=== PATIENT | male | born 1975 | race Caucasian/White ===

== ENCOUNTER 2019-05-01 01:20 | Outpatient (CLI) | payer BC, SELFPAY ==
[2019-05-01] MEDS: Normal Saline Flush 10 ML SYR IVP (08:53)
[2019-05-01] MEDS: Gadoterate meglumine 20 ML VIAL 15 ML IVP (08:54)
--- NOTE | 2019-05-01 09:15 | DI.MRI_ITS ---
EXAM: MR IAC BRAIN WO/W CLINICAL HISTORY: QUESTIONING TRIGEMINAL NEURALGIA, R/O LESION, RT SIDED FACIAL PAIN, HEADACHE, R51 TECHNIQUE: Multiplanar multisequence MRI was performed. COMPARISON: No exams were available for comparison FINDINGS: MR examination of the brain was performed according to the usual protocol with additional high-resolu tion pre and post contrast imaging of the posterior fossa/IAC region. Incidental note is made of mucoperiosteal thickening of right maxillary and bilateral ethmoid sinuses consistent with chronic sinusitis. The orbital structures appear intact. The temporal bone structures appear intact. Internal auditory canals and visualized 7th and 8th nerv es appear normal. No anatomic abnormality or enhancement associated with visualized 5th cranial nerv es. No mass lesion or enhancing lesion identified in the posterior fossa/IAC region. Whole brain im aging shows no enhancing lesion. There is question of minimal subcortical signal abnormality seen in right parietal lobe on FLAIR imag ing only, I think this is probably artifactual as it is not visible on standard T2 weighted imaging. No additional signal abnormality identified in the brain. IMPRESSION: Negative brain MRI with attention to posterior fossa as described above. DATA REPOSITORY:
== END 2019-05-01 01:40 ==
PROVIDERS: PCP Family Medicine; Visit Provider Nurse Practitioner Family
DX: R51 Headache (principal); J32.2 Chronic ethmoidal sinusitis; J32.0 Chronic maxillary sinusitis
CPT/HCPCS: 70553

== ENCOUNTER 2019-06-30 12:06 | Outpatient (CLI) | payer BC, SELFPAY ==
[2019-06-30 12:23] LABS: Bilirubin Negative (Negative); Blood Negative (Negative); Clarity Clear (Clear); Glucose Negative (Negative); Ketones Negative (Negative); Leukocyte Esterase Negative (Negative); Nitrite Negative (Negative); Specific Gravity >= 1.030 (1.005-1.025); Urobilinogen 0.2 EU/dL (Up TO 0.2); pH 5.5 (5-8)
[2019-06-30 12:28] LABS: Abs Immature Grans 0.01 k/cumm (0.0-0.09); Absolute Basophil Count 0.02 k/cumm (0.0-0.2); Absolute Eosinophil Count 0.16 k/cumm (0.0-0.7); Absolute Lymphocyte Count 1.68 k/cumm (1.2-3.4); Absolute Monocyte Count 0.59 k/cumm (0.11-0.7); Absolute Neutrophil Count 4.77 k/cumm (1.2-6.7); Basophils % 0.3; Eosinophils % 2.2; HCT 43.5 % (40.0-50.0); HGB 15.6 g/dL (13.5-17.5); Immature Grans % 0.1 %; Lymphocytes % 23.2; Mean Corp. HGB Concentration 35.9 g/dL (32.0-36.0); Mean Corpuscular Hemoglobin 31.6 pg (27.0-33.0); Mean Corpuscular Volume 88.1 fL (80-95); Mean Platelet Volume 10.2 fL (8.0-11.0); Monocytes % 8.2; Platelet Count 230 x1000/uL (130-400); RBC 4.94 m/cumm (4.50-6.00); RBC Distribution Width 12.1 % (11.8-14.1); White Blood Cell Count 7.23 k/cumm (4.4-10.8)
[2019-06-30 14:27] LABS: ALT 37 U/L (16-63); AST 18 U/L (15-37); Albumin 4.1 g/dL (3.4-5.0); Alkaline Phosphatase 64 U/L (46-116); Anion Gap 4.3 mmol/L (3-11); BUN 25 mg/dL (7-18); Bilirubin, Total 0.8 mg/dL (0.2-1.0); CO2 31.7 mmol/L (21.0-32.0); CREATININE 0.97 mg/dL (0.70-1.30); Calcium 9.4 mg/dL (8.5-10.1); Chloride 103 mmol/L (98-107); Glucose 80 mg/dL (74-106); Potassium 4.8 mmol/L (3.5-5.1); Sodium 139 mmol/L (136-145)
== END 2019-06-30 12:26 ==
PROVIDERS: PCP Family Medicine; Visit Provider Nurse Practitioner Family
DX: R39.198 Other difficulties with micturition (principal); M54.5 Low back pain
CPT/HCPCS: 36415; 80053; 81003; 84154; 85025

== ENCOUNTER 2019-07-17 10:11 | Outpatient (CLI) | payer BC, SELFPAY ==
--- NOTE | 2019-07-17 14:00 | DI.RAD_ITS ---
EXAM: XR LUMBAR SPINE COMPLETE CLINICAL HISTORY: Low back pain, M54.5 TECHNIQUE: COMPARISON: No exams were available for comparison FINDINGS: Five views were obtained. The intervertebral disc spaces are well maintained. Minimal endplate hype rtrophic spurring is noted in the mid lumbar region. No other significant bony abnormality seen. No evidence of spondylolysis or spondylolisthesis. There is a minimal right convex lumbar scoliosis. There is minimal vertebral wedging of L1 vertebral body which is probably developmental. IMPRESSION: Mild DJD lumbar spine
== END 2019-07-17 10:31 ==
PROVIDERS: PCP Family Medicine; Visit Provider Family Medicine
DX: M54.5 Low back pain (principal); M47.816 Spondylosis without myelopathy or radiculopathy, lumbar region
CPT/HCPCS: 72110

== ENCOUNTER 2019-12-11 00:39 | Outpatient (CLI) | payer BC, SELFPAY ==
--- NOTE | 2019-12-11 | DI.MRI_ITS ---
EXAM: MR ANGIO BRAIN WO CLINICAL HISTORY: TRIGEMINAL NEURALGIA LT SIDE OF FACE,G50.0. TECHNIQUE: Multiplanar multisequence MRI was performed. COMPARISON: No exams were available for comparison FINDINGS: MR angiography of the region of the [id number] was performed according to the usual protocol [facility] 3D akau-io-xesvvo imaging. The visualized internal carotid arteries appear intact, no aneurysm, d issection, or stenosis. The visualized vertebral arteries and basilar artery appear intact, no aneurysm, dissection, or steno sis. The anterior, middle, and posterior cerebral arteries and major branches appear intact. No aneurysm, dissection, or stenosis. IMPRESSION: Negative MR angiography, [id number] region. DATA REPOSITORY:
== END 2019-12-11 00:59 ==
PROVIDERS: PCP Nurse Practitioner; Visit Provider Nurse Practitioner
DX: G50.0 Trigeminal neuralgia (principal)
CPT/HCPCS: 70544

== ENCOUNTER 2021-10-31 09:40 | Emergency (ER) | payer SELFPAY ==
[2021-10-31] VITALS (50 sets, daily range): BP systolic 121–160; BP diastolic 71–124; PULSE 76–203; RESP 11–31; TEMP 36.7; O2SAT 90–100
--- NOTE | 2021-10-31 09:30 | RT.EKG_ITS ---
APPROVED REPORT Exam: Resting ECG Reason for Exam: chest pain Patient Location: E HR:118 bpm ECG Measurements Heart Rate 118 AXIS UT 162 P 147 QRSd 94 QRS 146 QT 300 T 162 QTc 419 Conclusion Sinus or ectopic atrial tachycardia...P axis (-45,135), rate> 99 Ventricular premature complex...V complex w/ short R-R interval Probable left atrial enlargement...P >50mS, <-0.10mV V1 Right axis deviation...QRS axis (100,269) poor baseline due to lead placement and patient movement; narrow complex regular rhythm, right axis
--- NOTE | 2021-10-31 09:30 | DI.RAD_ITS ---
Exam(s) XR PORTABLE CHEST AP EXAM: XR PORTABLE CHEST AP CLINICAL HISTORY: left chest pain, consider pneumothorax?. TECHNIQUE: 2D digital imaging was performed. COMPARISON: No exams were available for comparison FINDINGS: Single AP portable view. Heart size is upper normal. The mediastinum is not widened. Lungs are clear. No infiltrates nor obvious pleural effusions. IMPRESSION: No acute pulmonary findings on this single AP portable view of the chest. DATA REPOSITORY: RADIATION DOSE DELIVERED: All CT scans at this facility use at least one of these dose optimization techniques: automated exposure control; mA and/or kV adjustment per patient size (includes targeted e xams where dose is matched to clinical indication); or iterative reconstruction.
[2021-10-31] MEDS: fentaNYL 100 MCG/2 ML VIAL 50 MCG IVP (09:49)
[2021-10-31] MEDS: Ondansetron 4 MG/2 ML VIAL IVP ×2 (09:50→12:08)
[2021-10-31] MEDS: Normal Saline 1,000 ML 1000 ML IV (09:51)
[2021-10-31 09:52] LABS: Abs Immature Grans 0.02 10^3/uL (0.0-0.06); Absolute Basophil Count 0.03 10^3/uL (0.0-0.2); Absolute Eosinophil Count 0.03 10^3/uL (0.0-0.7); Absolute Lymphocyte Count 0.93 10^3/uL (1.2-3.4); Absolute Monocyte Count 1.12 10^3/uL (0.1-0.8); Absolute Neutrophil Count 6.05 10^3/uL (1.2-6.7); Basophils % 0.4; Eosinophils % 0.4; HCT 44.9 % (40.0-50.0); HGB 15.9 g/dL (13.5-17.5); Immature Grans % 0.2; Lymphocytes % 11.4; MCH 33.5 pg (27.0-33.0); MCHC 35.4 % (32.0-36.0); MCV 95 fL (80-95); MPV 9.6 fL (8.0-11.0); Monocytes % 13.7; Neutrophils % 73.9; Platelet Count 196 10^3/uL (130-400); RBC 4.74 10^6/uL (4.36-5.78); RDW 11.6 % (11.8-14.1); RDW-SD 40.8 fL; WBC 8.18 10^3/uL (4.4-10.8)
[2021-10-31] MEDS: LORazepam 20 MG/10 ML VIAL IVP (09:57)
--- NOTE | 2021-10-31 10:00 | DI.CT_ITS ---
Exam(s) CT CHEST PE CTA EXAM: CT CHEST PE CTA CLINICAL HISTORY: left sided pleuritic chest pain. TECHNIQUE: Imaging Protocol: CT angiography of the chest was performed using pulmonary embolus chava col. Multi planar reconstructions were performed. CONTRAST MATERIAL: Intravenous: Omnipaque 350 Contrast volume: 100 cc COMPARISON: No exams were available for comparison FINDINGS: CHEST: PULMONARY ARTERIES: There are no intraluminal filling defects to suggest acute pulmonary emboli. LUNGS: Emphysematous bullae noted in the medial upper lobes. No pneumothorax. No infiltrates nor ev idence of pulmonary infarction. Mild increased benign-appearing markings in the posterior basal segm ent of the left lower lobe. No pleural effusions. No evidence of infarction. No significant focal findings in the trachea and mainstem bronchi.. There are no pleural effusions. MEDIASTINUM: There is no hilar nor mediastinal adenopathy. Visualized thyroid unremarkable. CARDIAC: Heart size is upper normal. There is no pericardial effusion.Caliber of the thoracic aorta is within normal limits. No evidence of aortic dissection. There is no significant shift of the inte rventricular septum. PARTIALLY VISUALIZED UPPERMOST ABDOMEN: No adrenal masses. Benign-appearing hypodensity in the right hepatic lobe measuring 1 cm noted. Probably cyst or small hemangioma. No splenomegaly. OSSEOUS: No significant osseous lesions.. IMPRESSION: 1. No evidence of acute pulmonary emboli. No evidence of pulmonary infarction. Mild benign-appearin g increased markings in the left lower lobe posterior basal segment without confluent infiltrate and there are no pleural effusions. 2. No evidence of aortic dissection nor pericardial effusion. No evidence of obvious right heart str ain. RADIATION DOSE DELIVERED: 376.39mGy.cm Total DLP DATA REPOSITORY: All CT scans at this facility are submitted to the National Radiology Data Registry (NRDR) Dose Index Registry (DIR) with the [employer] (A[employer]). RADIATION OPTIMIZATION: All CT scans at this facility use at least one of these dose optimization te chniques: automated exposure control; mA and/or kV adjustment per patient size (includes targeted exa ms where dose is matched to clinical indication); or iterative reconstruction.
[2021-10-31 10:08] LABS: ALT 32 U/L (16-63); AST 21 U/L (15-37); Albumin 4.5 g/dL (3.4-5.0); Alkaline Phosphatase 95 U/L (46-116); Anion Gap 9.9 mmol/L (3-11); BUN 11 mg/dL (7-18); Bilirubin, Total 0.5 mg/dL (0.2-1.0); CO2 28.1 mmol/L (21.0-32.0); CREATININE 1.1 mg/dL (0.70-1.30); Calcium 9.3 mg/dL (8.5-10.1); Chloride 101 mmol/L (98-107); Glucose 118 mg/dL (74-106); Potassium 4.2 mmol/L (3.5-5.1); Prothrombin Time 10.2 sec (9.3-11.0); Sodium 139 mmol/L (136-145); Total Protein 8.2 g/dL (6.4-8.2)
--- NOTE | 2021-10-31 10:10 | ED.GENADUL_ITS ---
Discharge Plan Disposition Patient Disposition: HOME Condition: Improving Discharge Details Clinical Impression: Chest pain Primary Care Provider: Candida Almonte ED Provider: Cristóbal Akhtar Home Meds and New Rx's Prescriptions: New pantoprazole 40 mg tablet,delayed release (DR/EC) 40 mg PO DAILY Qty: 20 0RF lidocaine [Lidoderm] 5 % adhesive patch,medicated 1 patch topical DAILY Qty: 15 0RF Rx Instructions: leave on most painful area for up to 12 hrs No Action carbamazepine 200 mg tablet 600 mg PO BID Qty: 90 11RF sildenafil [Viagra] 25 mg tablet 25 mg PO DAILY PRN (Reason: sexual activity) Qty: 30 2RF Rx Instructions: administer 30 minutes to 4 hours before activity Discharge Instructions Instructions: Chest Pain (ED) Additional Instructions: Please follow-up with primary care physician. Please return to the emergency department for any worsening symptoms. Medical Decision Making 45-year-old male history of prior pneumothorax, trigeminal neuralgia, presents with acute onset left-sided chest pain atraumatic that began this morning around 3 AM, associate with nausea and 1 episode nonbloody nonbilious emesis, clutching left-sided chest bent over on arrival in severe pain, tachycardic and hypertensive, normoxic, tachypneic however able to speak in full sentences, lungs clear bilaterally, bedside x-ray negative for pneumothorax, bedside ultrasound negative for pneumothorax, unable to obtain clear cardiac window, given degree of pain on presentation patient must consider PE versus aortic pathology such as aneurysm or dissection versus pleurisy versus costochondritis versus ACS versus subclinical pneumothorax versus less likely pneumonia, lower suspicion for intra-abdominal process given location of discomfort directly parasternal superior left chest. Will obtain basic labs, analgesia fluids anxiolysis stat CT, holding aspirin until CT results, if negative CT chest administer aspirin and trend troponins. Disposition pending reassessment and results 10: 57 currently resting comfortably blood pressure is normalized heart rate now in the 90s, will obtain repeat EKG given poor baseline due to discomfort on arrival; CT negative for dissection or PE. No evidence of pneumothorax. Consider pleurisy versus costochondritis versus anxiety. Counseled patient and family at bedside. Disposition pending repeat troponin and EKG. Likely home with close follow-up and return precautions. 7. 13: 44 patient resting comfortably hemodynamically stable. Second troponin negative. Patient is asymptomatic. Consider costochondritis versus pleurisy versus GERD. Patient be sent home with empiric prescriptions. Given home care instructions and strict return precautions. HPI General Date/Time Provider Initiated Documentation: 10/31/21 09:43 . HPI Narrative: 45-year-old male history of trigeminal neuralgia, presents with left-sided chest pain acute that began this morning, associated with episode of nausea around 3 AM and 1 episode of vomiting. Nonbloody nonbilious. Denies abdominal pain. Does have a history of a pneumothorax in his 20s requiring chest tube placement. No cardiac risk factors. Denies new medications or travel. Denies history of thromboembolic events. Accompanied by his father who is also a coworker who drove patient from office this morning. Has been behaving normally per father. Has been battling intermittent trigeminal neuralgia and is scheduled for surgical procedure next month Related Data Home Medications Medication Instructions Recorded Confirmed carbamazepine 200 mg tablet 600 mg PO BID #90 tabs 07/16/21 10/31/21 sildenafil 25 mg tablet (Viagra) 25 mg PO DAILY PRN sexual activity 10/06/21 10/31/21 #30 tabs lidocaine 5 % topical patch 1 patch topical DAILY #15 ea 10/31/21 (Lidoderm) pantoprazole 40 mg tablet,delayed 40 mg PO DAILY #20 tabs 10/31/21 release Previous Rx's Medication Instructions Recorded carbamazepine 200 mg tablet 600 mg PO BID #90 tabs 07/16/21 sildenafil 25 mg tablet (Viagra) 25 mg PO DAILY PRN sexual activity 10/06/21 #30 tabs lidocaine 5 % topical patch 1 patch topical DAILY #15 ea 10/31/21 (Lidoderm) pantoprazole 40 mg tablet,delayed 40 mg PO DAILY #20 tabs 10/31/21 release Allergies Allergy/AdvReac Type Severity Reaction Status Date / Time No Known Allergies Allergy Verified 10/31/21 10:03 General Stated Complaint: Chest Pain MARGO: 2 Review of Systems Narrative: Review of Systems Constitutional: negative Eyes: negative ENT: negative Cardiovascular: Chest pain Respiratory: negative Gastrointestinal: negative : negative Musculoskeletal: negative Skin: negative Neurologic: negative Psych: negative PFSH All Active Problems (Updated 10/31/21 @ 13:45 by Cristóbal Akhtar MD) Chest pain (Acute) COVID-19 (Acute) Weight loss (Acute) Anxiety (Chronic) Major depression (Chronic) Trigeminal neuralgia of left side of face (Acute) Low back pain (Chronic) Family History Mother No problems noted. Father No problems noted. Sister No problems noted. Sister No problems noted. Son No problems noted. Son No problems noted. Daughter No problems noted. Social History (Updated 01/14/21 @ 08:02 by Ector Valentino) Smoking/Tobacco Use Status: Former Tobacco Use Smoking risk assessment performed?: Yes Alcohol Intake: former Drug use: Socially Substance use type: marijuana Caregiver/Support person: No Household members: spouse and children Housing: house Communication Needs: None Do you need help understanding health information?: Never Pets and animals: Yes Pets and animals: cat(s), dog(s), bird(s) and other Details: Rabbit, chickens Sexually active: Yes Do you think of yourself as: straight/heterosexual Current gender identity: male What is your relationship status?: How often do you talk on the phone with friends or family?: three or more times per week How often do you get together with friends or relatives?: never How often do you attend scientologist or scientology services?: decline to answer Do you belong to any clubs or organized social groups?: no Panel score (0-1 are the most socially isolated patients): 2 What type of physical activity do you participate in: none Hiwot/Buddhism: No preference Special hiwot needs: No Seatbelt use: sometimes Drive intox or ride w/intox after school driver: No Do you feel safe in your relationship?: Yes Exam Narrative Exam Narrative: Physical Examination General: alert, awake, cooperative, severe pain, bent over HEENT: normocephalic, atraumatic; PERRL, EOM intact, conjunctiva normal; no nasal discharge; moist mucous membranes, oral and pharyngeal mucosa normal, tolerating secretions Neck: supple, trachea midline; full ROM Chest: normal to inspection; no chest wall tenderness or crepitus Respiratory: Tachypnea, normal chest wall excursion however is favoring left side, clear lung sounds bilaterally Cardiac: Tachycardia, regular rhythm, S1S2 intact, no murmurs rubs or gallops; equal radial pulses GI: abdomen soft, non-tender, non-distended; no palpable mass or hepatosplenomegaly Skin: no lesions, rashes or trauma appreciated Neuro: AAOx3, normal speech, moving all extremities, ambulatory Extremities: Warm well perfused extremities Psych: Appropriate mood and affect Course Vital Signs Vital signs: Vital Signs Respiratory Rate 21 10/31/21 09:42 Temperature 36.7 C 10/31/21 09:49 Temperature Source Temporal Artery Scan 10/31/21 09:49 Pulse 112 H 10/31/21 10:01 Pulse 103 H 10/31/21 10:01 Respiratory Rate 21 10/31/21 10:01 Respiratory Effort Short of Breath 10/31/21 09:52 Respiratory Depth Normal 10/31/21 09:52 Respiratory Pattern Normal 10/31/21 09:52 Blood Pressure 140/93 H 10/31/21 10:01 Blood Pressure Mean 105 10/31/21 10:01 Blood Pressure Position Sitting 10/31/21 09:49 Pulse Oximetry 100 10/31/21 10:01 Oxygen Delivery Method Room Air 10/31/21 09:49 Oxygen Flow Rate 0 10/31/21 09:49 Pain Level 10 10/31/21 09:52 Lab/Test Results Lab/Test Results: Laboratory Tests Range/Units 10/31/21 09:47 WBC (4.4-10.8) 10^3/uL 8.18 RBC (4.36-5.78) 10^6/uL 4.74 Hgb (13.5-17.5) g/dL 15.9 Hct (40.0-50.0) % 44.9 MCV (80-95) fL 95 MCH (27.0-33.0) pg 33.5 H MCHC (32.0-36.0) % 35.4 RDW (11.8-14.1) % 11.6 L Plt Count (130-400) 10^3/uL 196 MPV (8.0-11.0) fL 9.6 Immature Gran % 0.2 Neutrophils % 73.9 Lymphocytes % 11.4 Monocytes % 13.7 Eosinophils % 0.4 Basophils % 0.4 Nucleated RBC % (0.0-0.3) % 0.0 Absolute Neutrophils (1.2-6.7) 10^3/uL 6.05 Absolute Lymphocytes (1.2-3.4) 10^3/uL 0.93 L Absolute Monocytes (0.1-0.8) 10^3/uL 1.12 H Absolute Eosinophils (0.0-0.7) 10^3/uL 0.03 Absolute Basophils (0.0-0.2) 10^3/uL 0.03
[2021-10-31 10:15] LABS: Troponin I < 50 ng/L (<or=60)
[2021-10-31] MEDS: Omnipaque 350 MG/ML 100 ML BTL 125 ML IJ (10:31)
--- NOTE | 2021-10-31 10:45 | RT.EKG_ITS ---
APPROVED REPORT Exam: Resting ECG Reason for Exam: repeat, chest pain Patient Location: E HR:89 bpm ECG Measurements Heart Rate 89 AXIS PA 160 P 63 QRSd 86 QRS 32 QT 330 T 63 QTc 403 Conclusion Sinus rhythm...normal P axis, V-rate 60- 99 sinus rhythm, normal axis, normal intervals, non ischemic
[2021-10-31 13:03] LABS: Troponin I < 50 ng/L (<or=60)
== END 2021-10-31 14:34 | disposition home or self-care (01) ==
PROVIDERS: Emergency Provider Emergency Medicine; PCP Nurse Practitioner
DX: R07.9 Chest pain, unspecified (principal); R11.2 Nausea with vomiting, unspecified; R00.0 Tachycardia, unspecified; R03.0 Elevated blood-pressure reading, without diagnosis of hypertension; Z87.891 Personal history of nicotine dependence
CPT/HCPCS: 36415; 71275; 80053; 93005; 96361; 96374; 96375; 96376; 99285; 71045; 84484; 85025; 85610; 85730; 93010; 99284; J2405; J3010; J3490

== ENCOUNTER 2022-01-15 21:36 | Outpatient (REF) | payer BC, SELFPAY ==
[2022-01-15 21:19] LABS: Calculated LDL 123 mg/dL (<100); Cholesterol 230 mg/dL (<200); HDL Cholesterol 98 mg/dL (40-60); Triglyceride 46 mg/dL (<150)
== END 2022-01-15 21:37 | disposition home or self-care (01) ==
LOC: LBN 21:36
PROVIDERS: PCP Nurse Practitioner Family; Visit Provider Nurse Practitioner Family
DX: Z00.00 Encounter for general adult medical examination without abnormal findings (principal)
CPT/HCPCS: 80061

== ENCOUNTER 2023-02-26 21:11 | Outpatient (REF) | payer BC, SELFPAY | END 2023-02-26 21:12 | disposition home or self-care (01) | LOC: LBN 21:11 | PROVIDERS: PCP Family Medicine; Visit Provider Nurse Practitioner Family | DX: J02.9 Acute pharyngitis, unspecified (principal) | CPT/HCPCS: 87070 ==

== ENCOUNTER 2024-04-13 10:52 | Outpatient (CLI) | payer OTHER, SELFPAY ==
[2024-04-13 12:48] LABS: ALT 30 U/L (16-63); AST 16 U/L (15-37); Albumin 3.8 g/dL (3.4-5.0); Alkaline Phosphatase 90 U/L (46-116); Anion Gap 5.9 mmol/L (3-11); BUN 12 mg/dL (7-18); Bilirubin, Total 0.34 mg/dL (0.2-1.0); CO2 30.1 mmol/L (21.0-32.0); Calcium 9.4 mg/dL (8.5-10.1); Calculated LDL 141 mg/dL (<100); Chloride 103 mmol/L (98-107); Cholesterol 225 mg/dL (<200); Estimated GFR 92.84 (mL/min/1.73m2); Glucose 91 mg/dL (74-106); HDL Cholesterol 71 mg/dL (40-60); Potassium 4.3 mmol/L (3.5-5.1); Sodium 139 mmol/L (136-145); Total Protein 7.3 g/dL (6.4-8.2); Triglyceride 68 mg/dL (<150)
[2024-04-13 23:44] LABS: Hepatitis C Ab w Rflx HCV PCR Negative (Negative)
== END 2024-04-13 10:53 | disposition home or self-care (01) ==
LOC: LOS 10:52
PROVIDERS: PCP Family Medicine; Referring Provider Family Medicine; Visit Provider Family Medicine
DX: I10 Essential (primary) hypertension (principal); Z11.59 Encounter for screening for other viral diseases
CPT/HCPCS: 36415; 80053; 80061; 86803

== ENCOUNTER 2024-06-19 09:03 | Day surgery (SDC) | payer OTHER, SELFPAY ==
--- NOTE | 2024-06-18 18:33 | W.PM.DSUDISC ---
Date of service: 06/19/24 Discharge Plan Disposition Patient Disposition: Home Condition: Good Discharge Details Reason For Visit: screening colonoscopy Attending Provider: To Mallory Primary Care Provider: January Fulton Home Meds and New Rx's Prescriptions: Continued carbamazepine 200 mg tablet 400 mg PO BID Qty: 360 4RF lisinopril 5 mg tablet 5 mg PO DAILY Qty: 90 4RF pantoprazole 40 mg tablet,delayed release (DR/EC) 40 mg PO DAILY Qty: 90 3RF sildenafil 50 mg tablet 50 mg PO DAILY PRN (Reason: sexual activity) Qty: 30 8RF Rx Instructions: administer 30 minutes to 4 hours before activity Discontinued bisacodyl [Dulcolax (bisacodyl)] 5 mg tablet,delayed release (DR/EC) 5 mg PO ONCE Qty: 4 0RF Rx Instructions: Take per colonoscopy instructions provided by ordering providers office polyethylene glycol 3350 17 gram/dose powder 17 g PO ONCE Qty: 238 0RF Rx Instructions: Take per colonoscopy instructions provided by ordering providers office Discharge Instructions Instructions: Colon polyps Additional Instructions: Deric, it was very nice to meet you today, I hope you feel well after the colonoscopy. Things went very smoothly. Your prep was excellent, and I could see everything fine. In total, I removed 4 polyps today. All of these were quite small, none of them have any features that are particularly worrisome. All of these polyps will be sent off for testing. Polyps 2, different varieties, months we have the report describing the nature of these polyps, my office will be in touch with recommendations for future colonoscopies. If you need anything or have any questions, please do not hesitate to ask. 1. If tolerated, consume a soft, low fiber diet for 1-2 days. 2[address] Do not drive, drink alcohol, operate machinery, make critical decisions, or do activities that require coordination or balance for 24 hours. 3. Because air was put into your colon during the procedure, expelling air from your rectum (passing gas or farting) is normal. 4. You may not have a bowel movement for 1-3 days because of the colonoscopy prep. This is normal. 5. Go directly to the emergency room if you notice any of the following: Develop chills (warm to touch), or if you have a thermometer and your temperature is above 101 Difficulty breathing or difficultly swallowing Persistent vomiting Severe abdominal pain, other than gas cramps Severe chest pain Black, tarry stools Any bleeding ? exceeding one tablespoon 6. Call your physician if the site where your intravenous was started becomes red, swollen, painful, and warm to touch. 7. Your physician has reviewed your pre-procedure medications. Please continue to take those medications as previously ordered. You will be given specific information/education regarding any changes to your medications before leaving. Stand Alone Forms: Anesthesia Discharge InstBertram, Leila Sandoval (DSU) Activity:: Activity as Tolerated Diet:: As Tolerated Discharge Orders Discharge Orders: Discharge Order (Routine); Ordered 06/18/24 Ordered By: To Mallory DS: Diagnosis Discharge Diagnosis (1) Encounter for screening colonoscopy: Status: Acute Asessment and Plan: Follow-up on polypectomy results
--- NOTE | 2024-06-18 18:34 | COLE_ITS ---
Date of service: 06/19/24 Time of Service: 11:28 Colonoscopy Report Date of procedure: 06/19/24 Pre-op diagnosis general: screening colonoscopy Post-op diagnosis procedure note: other (Colon polyps) Procedure: colonoscopy with polypectomy Surgeon: To Mallory Anesthesia Type: General:No Airway Estimated blood loss (mL): 5 Pathology: other (0.25 cm rectal polyps x 2, 0.25 cm polyp at 20 cm, 0.25 cm polyp at 18 cm) Complications: None Disposition: same day Indications: Deric is a 48 year old man who needs a screening colonoscopy Prep: Miralax/Dulcolax Procedure Start Time: 11:03 Procedure End Time: 11:19 Retraction Time: 9 Findings: 0.25 cm rectal polyps x 2, 0.25 cm polyp at 20 cm, 0.25 cm polyp at 18 cm Procedure Description: After the induction of anesthesia, and with the patient in left lateral decubitus position, I began by performing an external anorectal exam.? Perineum and skin were normal, as was the anal verge.? There was no evidence of external hemorrhoids.? Next, I performed a digital rectal exam.? I did not appreciate any abnormal findings.? Next, I advanced a colonoscope into the rectal vault.? I performed retroflexion. This appeared normal. Within the rectal vault were 2 polyps. These were both less than 0.25 cm. They were mostly flat. There is removed with cold forceps with minimal bleeding and sent as a single specimen referred to his rectal polyps. Using insufflation, I then advanced the colonoscope beyond the rectal folds and into the sigmoid colon before advancing towards the cecum.? The quality of the prep was outstanding.? The scope was noted to be in the cecum by identification of the ileocecal valve and appendiceal orifice.? I then began withdrawing the colonoscope using repeated irrigation as necessary for full evaluation of the colonic mucosa. Around 20 cm from the anal verge was a 0.25 cm more flat polyp. Features generally appeared consistent with hyperplastic polyp using narrowband imaging. However, to be safe, this was removed with cold forceps. Similarly another flat polyp was found to 18 cm. This did appear a little bit more adenomatous. Similar to all the others, this was removed with cold forceps without issue. Once the scope was withdrawn to the level of the rectum, great care was taken to examine portions of the rectal folds.? Finally, the scope was withdrawn and the patient was brought to the same-day surgery recovery unit as the anesthetic wore off. ?The findings and instructions were shared with the patient prior to discharge. Trumann Bowel Prep Trumann Bowel Prep Right Colon: 3 Left Colon: 3 Transverse Colon: 3 Total Score: 9
[2024-06-19 09:20] VITALS: BP 116/70; PULSE 70; RESP 16; TEMP 36.9; O2SAT 98
[2024-06-19] MEDS: Lactated Ringers 1,000 ML 80 ML IV (09:55)
--- NOTE | 2024-06-19 09:58 | ANES.PREOP_ITS ---
General Info Date of Service Date Performed: 06/19/24 Height: 6 ft 3 in Weight: 76.9 kg Body Mass Index (BMI): 21.2 Surgical Procedure: Operation Date: 06/19/24 10:35 Proposed Procedure Side Surgeon archie Mallory MD Meds Allergies and Home Medications Allergies Allergy/AdvReac Type Severity Reaction Status Date / Time No Known Allergies Allergy Verified 06/19/24 09:36 Home Medication ?Medication ?Instructions ?Recorded carbamazepine 200 mg tablet 400 mg (2 x 200 mg) PO BID #360 04/28/23 tabs lisinopril 5 mg tablet 5 mg PO DAILY #90 tabs 08/09/23 pantoprazole 40 mg tablet,delayed 40 mg PO DAILY #90 tabs 08/12/23 release sildenafil 50 mg tablet 50 mg PO DAILY PRN sexual activity 08/12/23 #30 tabs Current Visit Medications: Current Medications Generic Name Dose Route Start Last Admin Trade Name Freq PRN Reason Stop Dose Admin Ringer's Solution 1,000 mls @ 80 mls/hr 06/19/24 10:00 IV 07/19/24 09:59 INFUSION [facility] Active Problems Active Problems: Problem Status Onset Code Encounter for screening colonoscopy Acute Z12.11 Right lateral epicondylitis Acute M77.11 Cervical pain Acute M54.2 Essential hypertension Acute I10 Weight loss Acute R63.4 Anxiety Chronic F41.9 Major depression Chronic F32.9 Trigeminal neuralgia of left side of face Acute G50.0 Low back pain Chronic M54.5 Medical History Medical History Comments:: Daily THC, last smoke HS; Last e-cig 0845a; has nipple piercings Tobacco Smoking/Tobacco Use Status: Current every day Tobacco Type: e-cigarettes Passive smoking exposure: Yes Second hand exposure: Yes Alcohol Alcohol Intake: former Details: 6 or more drinks monthly or less Substance Use Substance use: Daily Substance use type: marijuana Details: HS Vital Signs and Lab Results Vital Signs Most Recent Vital Signs in EMR: Most Recent Vital Signs Temp Pulse Resp BP Pulse Ox 36.9 C 70 16 116/70 98 06/19/24 09:20 06/19/24 09:20 06/19/24 09:20 06/19/24 09:20 06/19/24 09:20 Lab Results Blood Type / Crossmatch: No Data to Display Complete Blood Count: No Data to Display Complete Metabolic Panel: No Data to Display Liver Function Panel: No Data to Display Coagulation Panel: No Data to Display Cardiac Panel: No Data to Display Arterial Blood Gas: No Data to Display Venous Blood Gas: No Data to Display Pancreas Panel: No Data to Display Thyroid Panel: No Data to Display Infectious Disease: No Data to Display Blood Cultures: No Data to Display Toxicology Panel: No Data to Display Anesthesia Assessment and Plan Anesthesia History Personal History: No History of Anesthesia Complications Family History: No Family History of Anesthesia Complications Exercise Tolerance Exercise Tolerance: Metabolic Equivalents>4 Pertinent Negatives Pertinent Negatives: No Symptoms of GERD Cardiac & Pulmonary Exam Cardiac Exam: Normal S1/S2 Heart Sounds Pulmonary Exam: Clear Bilateral Breath Sounds Implantable Cardiac Device Does patient have a Pacemaker or an ICD?: No Airway Exam Known Difficult Airway: No Mallampati Class: 2 Mouth Opening: Normal (> 3cm) Thyromental Distance: Greater than 3 cm Neck Range of Motion: Full ROM Neck Circumference: Normal Teeth Condition: Normal Dentition ASA Classification ASA Score: ASA 2 Emergency Case?: No NPO Status NPO Status: NPO Clears >2 hours, Solids >8 hours Anesthesia Plan Resuscitation Status: Full Code Anesthesia Technique: General Anesthesia Airway Planned: Natural Airway Monitors Used: Standard Monitors
[2024-06-19 09:59] VITALS: BMI 21.2
--- NOTE | 2024-06-19 11:05 | BOWEL_PTH ---
PATIENT: Deric Chopra JR LOC: [facility] U#:[id number] AGE/SX: 48/M ROOM: RE06/19/[address]: To Mallory MD : 1975 BED: DIS: 06/19/2024 SPEC #: [id number] RECD: 06/19/24 13:05 STATUS: THOMAS RE #: [id number] CHERIE: 06/19/24 11:[address]: To Mallory DEPT: Surgical Specimen RECD BY: Zoey Perez ENTERED: 06/19/24 13:06 SP TYPE: Bowel OTHR DR: January Fulton MD, [place] Tissues: 1 - BIOPSY BOWEL 2 - BIOPSY BOWEL 3 - BIOPSY BOWEL Procedures: GROSS AND MICRO LEVEL 4 Comments: [id number]
[2024-06-19 11:24] VITALS: BP 93/62; PULSE 51; RESP 16; TEMP 36.7; O2SAT 99
[2024-06-19 11:55] VITALS: BP 104/79; PULSE 54; RESP 17; TEMP 36.2; O2SAT 98
--- NOTE | 2024-06-19 13:54 | W.ANESPOSTOP ---
Postoperative Evaluation Date, Time and Location Date Performed: 06/19/24 Time Performed: 12:02 Patient Location: Day Surgery Unit Vital Signs Most Recent Imported Vital Signs: Most Recent Vital Signs Temp Pulse Resp BP Pulse Ox 36.2 C L 54 L 17 104/79 98 06/19/24 11:55 06/19/24 11:55 06/19/24 11:55 06/19/24 11:55 06/19/24 11:55 Pain Score Most Recent Pain Score: Most Recent Pain Score Pain Level 0 06/19/24 11:55 Assessment Mental Status: Awake (Alert & Oriented to Patient Baseline) Airway and Respiratory Function: Patent airway with normal (patient baseline) respiratory exam Cardiovascular Function: Hemodynamically Stable Hydration Status: Adequately Hydrated Nausea & Vomiting: No Nausea or Vomiting Pain: Pt. Denies Any Pain Peripheral Nerve Block: Patient did not receive a nerve block
== END 2024-06-19 12:00 | disposition home or self-care (01) ==
LOC: SUR 09:03
PROVIDERS: PCP Family Medicine; Visit Provider Surgery
PROC: 0DJD8ZZ Inspection of Lower Intestinal Tract, Via Natural or Artificial Opening Endoscopic (ICD-10-PCS; CPT 45378; principal; 2024-06-19 10:30)
DX: Z12.11 Encounter for screening for malignant neoplasm of colon (principal); D12.8 Benign neoplasm of rectum; K63.5 Polyp of colon
CPT/HCPCS: 45380; 88305; J2704

== ENCOUNTER 2024-07-24 18:01 | Emergency (ER) | payer OTHER, SELFPAY ==
[2024-07-24 18:02] VITALS: BP 124/88; PULSE 92; RESP 18; TEMP 36; O2SAT 98
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
[2024-07-24 21:12] VITALS: BP 129/83; PULSE 68; RESP 16; TEMP 36.7; O2SAT 99
== END 2024-07-24 21:13 | disposition home or self-care (01) ==
PROVIDERS: Emergency Provider Physician Assistant; PCP Family Medicine
DX: J34.89 Other specified disorders of nose and nasal sinuses (principal); M54.2 Cervicalgia; I10 Essential (primary) hypertension; Y04.0XXA Assault by unarmed brawl or fight, initial encounter; Y93.89 Activity, other specified
CPT/HCPCS: 99284; 70486; 70490

== ENCOUNTER 2025-01-23 13:09 | Outpatient (CLI) | payer SELFPAY ==
[2025-01-23 15:56] LABS: Abs Immature Grans 0.04 10^3/uL (0.0-0.06); HCT 41.5 % (40.0-50.0); HGB 13.9 g/dL (13.5-17.5); Immature Grans % 0.5 %; MCH 31.4 pg (27.0-33.0); MCHC 33.5 % (32.0-36.0); MCV 94 fL (80-95); MPV 10.7 fL (8.0-11.0); Platelet Count 232 10^3/uL (130-400); RBC 4.42 10^6/uL (4.36-5.78); RDW 12.0 % (11.8-14.1); RDW-SD 41.6 fL; WBC 8.37 10^3/uL (4.4-10.8)
[2025-01-23 16:30] LABS: TSH (W/Ref FT4) 0.62 uIU/mL (0.55-4.78)
[2025-01-23 16:36] LABS: ALT 21 U/L (10-49); AST 19 U/L (<34); Albumin 4.2 g/dL (3.4-5.0); Alkaline Phosphatase 81 U/L (46-116); Anion Gap 4.2 mmol/L (3-11); BUN 20 mg/dL (9-23); Bilirubin, Total 0.20 mg/dL (0.2-1.2); CO2 29.8 mmol/L (20.0-31.0); Calcium 9.1 mg/dL (8.3-10.6); Chloride 107 mmol/L (98-107); Cholesterol 168 mg/dL (<200); Glucose 98 mg/dL (74-106); HDL Cholesterol 61 mg/dL (>40); Potassium 4.6 mmol/L (3.5-5.1); Sodium 141 mmol/L (136-145); Total Protein 7.1 g/dL (5.7-8.2)
[2025-01-23 16:43] LABS: Hemoglobin A1C 5.1 % (<5.7)
== END 2025-01-23 13:10 | disposition home or self-care (01) ==
LOC: LOS 13:09
PROVIDERS: PCP Family Medicine; Visit Provider Family Medicine
DX: I10 Essential (primary) hypertension (principal); R63.4 Abnormal weight loss; E11.9 Type 2 diabetes mellitus without complications
CPT/HCPCS: 36415; 80053; 80061; 83036; 84443; 85025

== ENCOUNTER → 2025-02-12 00:34 | Outpatient (CLI) | payer SELFPAY ==
--- NOTE | 2025-02-12 06:15 | DI.US_ITS ---
Exam(s) US ABDOMEN EXAM: US ABDOMEN CLINICAL HISTORY: anorexia,unintentional wt loss, r63.4 TECHNIQUE: Ultrasound abdomen performed using standard protocol. COMPARISON: CT CT CHEST PE CTA from 10/31/2021 FINDINGS: LIVER: Normal size and echogenicity. No focal liver lesions are seen. GALLBLADDER: No evidence of cholelithiasis. No evidence of wall thickening. No pericholecystic fluid identified. CONNER'S SIGN: Negative. BILIARY SYSTEM: No intrahepatic or extrahepatic biliary ductal dilation. KIDNEYS: Kidneys are symmetric in size. No evidence of renal calculi. No evidence of hydronephrosis. No renal mass or cyst identified. PANCREAS: Normal where visualized. SPLEEN: Not enlarged. ABDOMINAL AORTA AND IVC: Visualized portions normal caliber. ASCITES: None seen. IMPRESSION: Normal sonographic appearance of the upper abdomen. DATA REPOSITORY:
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
== END ==
LOC: DI 00:34
PROVIDERS: PCP Family Medicine; Visit Provider Family Medicine
DX: R63.4 Abnormal weight loss (principal); F17.211 Nicotine dependence, cigarettes, in remission
CPT/HCPCS: 71046; 76700